=== PATIENT | female | born 1960 | race Caucasian/White ===

== ENCOUNTER 2022-07-28 20:00 | Emergency (ER) | payer OTHER, SELFPAY ==
--- NOTE | ~2022-07-28 | XR_ITS ---
EXAMINATION: XR pelvis 1-2V INDICATION: Pelvic pain TECHNIQUE: AP view of the pelvis is obtained. COMPARISON: None available FINDINGS: Mild deformities noted in the left aspect of the L5 vertebral body as described on the CT r eport. No additional acute osseous findings are evident. There are phleboliths of the pelvis. A moder ate volume of colonic stool is present. IMPRESSION: 1. No acute osseous abnormality of the pelvis. Reviewed, dictated and finalized at location F. OGRAPHIC PHOTOGRAPHER
--- NOTE | ~2022-07-28 | CT_ITS ---
EXAMINATION: CT brain wo con INDICATION: Head injury COMPARISON: None TECHNIQUE: Standard unenhanced head CT. The dose-length product (DLP) was 605.33 mGy-cm. The mA was a djusted according to patient size. Iterative reconstruction technique was employed. FINDINGS: There is no intracranial hemorrhage, acute infarction, or abnormal mass lesion. The ventric les are normal. There is no abnormal mass effect or midline shift. The stockton-white matter differentiat ion is normal. The basal cisterns are patent. There are right frontal and right parietal scalp hemato mas. The orbits are normal. The paranasal sinuses, mastoids and calvarium are normal. IMPRESSION: 1. No acute intracranial abnormality. Reviewed, dictated and finalized at location F. IRATORY CARE ASSISTANT
--- NOTE | ~2022-07-28 | CT_ITS ---
EXAMINATION: CT cervical spine wo con DATE: 07/28/2022 20:52 INDICATION: Neck pain TECHNIQUE: Computed tomography (CT) of the cervical spine was performed without intravenous contrast. The dose-length product (DLP) was 446.18 mGy-cm. Automated exposure control and iterative reconstruc tion technique were employed. COMPARISON: None FINDINGS: No fracture, dislocation, or subluxation. The vertebral body heights, alignment, and interv ertebral disc spaces are normal. The paravertebral soft tissues are unremarkable. The odontoid proces s is intact. IMPRESSION: 1. No acute osseous abnormality. Reviewed, dictated and finalized at location F. STOCK TRUCKER
--- NOTE | ~2022-07-28 | CT_ITS ---
EXAMINATION: CT thoracic lumbar wo con DATE: 07/28/2022 20:54 INDICATION: Thoracic and lumbar back pain TECHNIQUE: Computed tomography (CT) of the thoracic and lumbar spine was performed without intravenou s contrast. The dose-length product (DLP) was 1943.11 mGy-cm. Iterative reconstruction was used. COMPARISON: None FINDINGS: Thoracic spine: Bone alignment is normal. There is no fracture. The vertebral body heights and interv ertebral disc spaces are maintained. The prevertebral soft tissues are normal. The gallbladder is miguel gically absent. Lumbar spine: There is mild anterior/superior endplate deformity of L1 vertebral body. The lumbar po tebral body heights are otherwise maintained. There is a subtle fracture involving the left inferior endplate of the L5 vertebral body. The posterior elements are intact. The intervertebral disc spaces are normal. IMPRESSION: 1. Subtle fracture involving the left inferior endplate of the L5 vertebral body. 2. Mild deformity of the anterior/superior endplate of L1, fracture versus degenerative change. 3. Unremarkable thoracic spine. Reviewed, dictated and finalized at location F. GAUGER AND LUBRICATOR TENDER IMPRESSION: 1. Subtle fracture involving the left inferior endplate of the L5 vertebral bod y. 2. Mild deformity of the anterior/superior endplate of L1, fracture versus dege nerative change. 3. Unremarkable thoracic spine.
--- NOTE | ~2022-07-28 | XR_ITS ---
EXAMINATION: XR chest 1V INDICATION: Chest pain TECHNIQUE: Frontal view of the chest is obtained. COMPARISON: 12/19/2017 FINDINGS: The lungs are free of acute opacities. No pleural effusion or pneumothorax. Cholecystectomy clips are noted. The cardiomediastinal silhouette is normal. IMPRESSION: 1. No acute cardiopulmonary abnormality. Reviewed, dictated and finalized at location F. T GRAPHIC DESIGNER
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
[2022-07-28 20:17] VITALS: BP 94/64; PULSE 62; RESP 12; TEMP 36.5; O2SAT 96
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
[2022-07-28 21:39] VITALS: BP 140/66; PULSE 118; RESP 12; O2SAT 94
[2022-07-28 22:00] VITALS: RESP 14
[2022-07-28] MEDS: LIDOCAINE HCL 1% LOCAL INJ 10 ML VIAL INFILTRATE (22:00)
[2022-07-28 22:02] VITALS: BP 140/67; PULSE 84; RESP 12; O2SAT 95
[2022-07-28] MEDS: TETANUS,DIPHTHERIA,AC PERTUSSIS ADULT 0.5 ML (ADACEL) IM (22:37)
[2022-07-28] MEDS: HYDROmorphone HCL INJ (*CRX) 2 MG/ML VIAL 1 MG IV PUSH (22:37)
[2022-07-28] MEDS: ONDANSETRON INJ 4 MG/2 ML VIAL IV PUSH ×2 (22:37→23:18)
[2022-07-28 22:45] VITALS: PULSE 68; RESP 12; O2SAT 92
[2022-07-28 23:20] VITALS: BP 134/60; PULSE 64; RESP 18; TEMP 36.7; O2SAT 94
== END 2022-07-28 23:22 | disposition short-term general hospital (02) ==
PROVIDERS: Emergency Provider Emergency Medicine; PCP Family Medicine
DX: S32.059A Unspecified fracture of fifth lumbar vertebra, initial encounter for closed fracture (principal); S01.01XA Laceration without foreign body of scalp, initial encounter; S01.81XA Laceration without foreign body of other part of head, initial encounter; S39.012A Strain of muscle, fascia and tendon of lower back, initial encounter; Z79.82 Long term (current) use of aspirin; Z79.4 Long term (current) use of insulin; Z23 Encounter for immunization; V59.3XXA Occupant (driver) (passenger) of pick-up truck or van injured in unspecified nontraffic accident, initial encounter
CPT/HCPCS: 12002; 12011; 70450; 71045; 72125; 72128; 72131; 72170; 90471; 90715; 96374; 96375; 96376; 99285; J1170; J2405

== ENCOUNTER 2022-08-01 07:32 | Emergency (ER) | payer OTHER, SELFPAY ==
[2022-08-01] VITALS (26 sets, daily range): BP systolic 118–164; BP diastolic 51–74; PULSE 80–100; RESP 16–23; TEMP 36.2–36.7; O2SAT 93–99
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
[2022-08-01] MEDS: SODIUM CHLORIDE 0.9% IV 1,000 ML 999 ML IV CONT (07:50)
[2022-08-01] MEDS: MORPHINE SULFATE (*CRX) 4 MG/ML INJ IV PUSH (07:51)
[2022-08-01 07:55] LABS: Basophils Absolute Auto 0.06 K/mm3 (0.00-0.10); Basophils Percent Auto 0.3 % (0.0-1.0); Eosinophils Absolute Auto 0.06 K/mm3 (0.02-0.50); Eosinophils Percent Auto 0.3 % (1.0-6.0); Hematocrit 44.1 % (35.0-49.0); Hemoglobin 14.3 g/dL (12.0-15.0); Immature Granulocyte Absolute 0.09 K/mm3 (0.00-0.00); Immature Granulocyte Percent A 0.5 % (0.0-0.0); Lymphocytes Absolute Auto 0.94 K/mm3 (1.10-4.50); Lymphocytes Percent Auto 5.5 % (18.0-42.0); Mean Corpuscular HGB Conc 32.4 g/dL (32.0-36.0); Mean Corpuscular Volume 92.5 fL (78.0-102.0); Mean Platelet Volume 9.5 fl (9.2-11.8); Monocytes Absolute Auto 0.78 K/mm3 (0.10-0.90); Monocytes Percent Auto 4.5 % (2.0-11.0); Neutrophils Absolute Auto 15.3 K/mm3 (1.7-7.2); Neutrophils Percent Auto 88.9 % (50.0-70.0); Platelet Count Result 262 K/mm3 (150-420); Red Blood Count 4.77 M/mm3 (4.20-5.40); Red Cell Distribution Width 13.4 % (11.6-14.4); White Blood Count 17.2 K/mm3 (4.8-10.8)
[2022-08-01 08:09] LABS: Partial Thromboplastin Time 26.9 SEC (23.90-30.70); Prothrombin Time 10.5 Seconds (9.50-12.10)
[2022-08-01 08:13] LABS: Lactic Acid Reflex 1.4 mmol/L (0.4-2.0)
[2022-08-01 08:19] LABS: Alanine Aminotransferase 35 U/L (14-59); Albumin Level 3.3 g/dL (3.4-5.0); Alkaline Phosphatase 127 U/L (46-116); Anion Gap 17 mmol/L (8-16); Aspartate Amino Transferase 30 U/L (15-37); Bilirubin,Total 1.4 mg/dL (0.00-1.00); Blood Urea Nitrogen 16 mg/dL (7-18); Calcium 8.9 mg/dL (8.5-10.1); Carbon Dioxide 21 mmol/L (21-32); Chloride 102 mmol/L (98-108); Estimated Glomerular Filt Rate > 60; Glucose 137 mg/dL (70-99); Lipase 25 U/L (16-77); Osmolality Calculated 293 mOsm/kg (285-295); Potassium 3.1 mmol/L (3.5-5.1); Sodium 140 mmol/L (136-145); Total Protein 7.5 g/dL (6.4-8.2)
--- NOTE | 2022-08-01 08:26 | PC.NURSE ---
RN PRESENT AT BEDSIDE DURING RECTAL EXAM, BRIGHT RED BLOOD IS NOTED. PT TOLERATED WELL. VSS.
--- NOTE | 2022-08-01 09:45 | PC.NURSE ---
PT HAS SON AT BEDSIDE, DENIES ANY NEEDS OR COMPLAINTS AT PRESENT. PT IS AWAITING RETURN CALL FROM [facility] AT THIS TIME. WILL CONTINUE TO MONITOR.
--- NOTE | 2022-08-01 10:41 | PC.NURSE ---
PT AND FAMILY ARE AWARE AND AGREEABLE TO TRANSFER TO [facility] TRANSFER TO
[2022-08-01] MEDS: HYDROmorphone HCL INJ (*CRX) 2 MG/ML VIAL 1 MG IV PUSH (10:50)
== END 2022-08-01 11:00 | disposition short-term general hospital (02) ==
PROVIDERS: Emergency Provider Preventive Medicine Aerospace Medicine; PCP Family Medicine
DX: K52.9 Noninfective gastroenteritis and colitis, unspecified (principal); R10.30 Lower abdominal pain, unspecified; K62.5 Hemorrhage of anus and rectum; Z79.82 Long term (current) use of aspirin; Z79.4 Long term (current) use of insulin
CPT/HCPCS: 36415; 74174; 80053; 83605; 83690; 85025; 85610; 85730; 96361; 96374; 96375; 99285; J1170; J2270; J7030; Q9967